=== PATIENT | female | born 1945 ===

== ENCOUNTER → 2024-03-13 09:56 | Outpatient (BNVA) | payer MEDICARE, SELFPAY | PROVIDERS: Visit Provider Specialist | DX: G20.A2 Parkinson's disease without dyskinesia, with fluctuations (principal); G31.83 Neurocognitive disorder with Lewy bodies; F02.B4 Dementia in other diseases classified elsewhere, moderate, with anxiety | CPT/HCPCS: 96116; 99205 ==

== ENCOUNTER → 2024-06-18 13:56 | Outpatient (BNVA) | payer MEDICARE, SELFPAY | PROVIDERS: Visit Provider Specialist | DX: G31.83 Neurocognitive disorder with Lewy bodies (principal); F02.B4 Dementia in other diseases classified elsewhere, moderate, with anxiety | CPT/HCPCS: 99214 ==

== ENCOUNTER → 2024-10-20 11:30 | Outpatient (BNVA) | payer MEDICARE, SELFPAY | PROVIDERS: Visit Provider Specialist | DX: G31.83 Neurocognitive disorder with Lewy bodies (principal); F02.B4 Dementia in other diseases classified elsewhere, moderate, with anxiety | CPT/HCPCS: 99214 ==

== ENCOUNTER → 2025-03-18 10:41 | Outpatient (BNVA) | payer MEDICARE, SELFPAY | PROVIDERS: PCP Family Medicine; Visit Provider Specialist | DX: G31.83 Neurocognitive disorder with Lewy bodies (principal); F02.B4 Dementia in other diseases classified elsewhere, moderate, with anxiety | CPT/HCPCS: 99214 ==